=== PATIENT | male | born 1950 | race Caucasian/White ===

== ENCOUNTER → 2021-10-09 | Outpatient (CLI) | payer MEDICARE, OTHER ==
[~2021-10-09] MED LIST: ACET-1707 PO; AMLO-187 PO; APIX5TAB PO; ASPI-886 PO; ATOR40TA59 PO; BACL10TA PO; DULO30CA44 PO; FINA5TAB4 PO; FLUT16SP NS; GLIP5TAB10 PO; LOSA-73 PO; POTA10TA12 PO; QUET25TA5 PO; TAMS0.4C97 PO; TRIA15OI TP
[2021-10-09 11:37] LABS: BASO # 0.1 x10^3/uL (0.0-0.2); BASO % 1 % (0-3); EOS # 0.1 x10^3/uL (0.0-0.7); EOS % 2 % (0-3); HEMATOCRIT 36.3 % (39.0-53.0); LYMPH # 1.1 x10^3/uL (1.0-4.8); LYMPH % 13 % (24-48); MEAN CORPUSCULAR HEMOGLOBIN 30 pg (25-35); MEAN CORPUSCULAR HGB CONC 33 g/dL (31-37); MEAN CORPUSCULAR VOLUME 90 fL (79-100); MONO # 0.5 x10^3/uL (0.0-1.1); MONO % 5 % (0-9); NEUT # 6.7 x10^3/uL (1.8-7.7); NEUT % 79 % (31-73); PLATELET COUNT 285 x10^3/uL (140-400); RED BLOOD COUNT 4.04 x10^6/uL (4.30-5.70); RED CELL DISTRIBUTION WIDTH 15.6 % (11.5-14.5); WHITE BLOOD COUNT 8.4 x10^3/uL (4.0-11.0)
[2021-10-09 11:51] LABS: ALBUMIN 3.8 g/dL (3.4-5.0); CALCIUM 8.7 mg/dL (8.5-10.1); CREATININE 1.2 mg/dL (0.7-1.3); GFR 59.5; POTASSIUM 4.1 mmol/L (3.5-5.1)
--- NOTE | 2021-10-09 13:39 | EKG ---
[facility] [address] [place] [address] Test Date: 2021-10-09 Test Time: 13:39:13 Pat Name: LACHELLE PHILLIPS Department: Room: Gender: M Pl Sql Programmer: DEUCE : 1950 Requested By: GABRIEL PETERS Order Number: [id number] Reading MD: Ariel Law MD Measurements Intervals [place] Rate: 77 P: 38 AK: 200 QRS: 34 QRSD: 78 T: 68 QT: 366 QTc: 416 Interpretive Statements SINUS RHYTHM Electronically Signed On 10-09-2021 15:49:40 RELAY REPAIRER by Ariel Law MD
--- NOTE | 2021-10-09 15:47 | RAD ---
EXAM: CHEST 2 VIEWS. HISTORY: Preoperative risk factors. Hypertension. COMPARISON: None. FINDINGS: Frontal and lateral views of the chest are obtained. There are no confluent infiltrates. Hyperinflation suggests chronic obstructive pulmonary disease. Th ere is no pneumothorax or pleural effusion. The heart is not enlarged. IMPRESSION: 1. Correlate for chronic obstructive pulmonary disease. No confluent infiltrates. Electronically signed by: Mary Moralez MD (10/09/2021 3:44 PM) [id number]
[2021-10-10 02:32] LABS: HEMOGLOBIN A1C 5.5 % (4.8-5.6)
== END ==
LOC: SURGPAT 14:16
PROVIDERS: ATTEND Orthopaedic Surgery
DX: Z01.818 Encounter for other preprocedural examination (principal); M17.11 Unilateral primary osteoarthritis, right knee; Z79.01 Long term (current) use of anticoagulants; Z79.899 Other long term (current) drug therapy
CPT/HCPCS: 36415; 71046; 80048; 82040; 82306; 83036; 85025; 85610; 85651; 85730; 87641; 93005

== ENCOUNTER → 2021-10-30 | Day surgery (SDC) | payer MEDICARE, OTHER ==
[2021-10-11 14:35] VITALS: BP 147/80
[~2021-10-30] VITALS: Ht 180.3 cm; Wt 109.0 kg
[~2021-10-30] MED LIST changes: +ACETAMINOPHEN 500 MG TABLET PO PRN; +DEXAMETHASONE SOD PHOS 4 MG/ML VIAL ONE; +GABAPENTIN 300 MG CAPSULE. PO PRN; +HYDROmorphone 2 MG/ML INJ. IVP PRN; +INSULIN LISPRO 100 UNIT/ML 3ML VIAL for OP,RR ONLY. SQ PRN; +IV RINGERS,LACTATED 1000ML 1,000 ML IV SCH; +KETOROLAC 30 MG/ML VIAL. ONE; +LIDOCAINE 2% PF 5 ML VIAL. ONE; +MELOXICAM 7.5 MG TABLET PO PRN; +MORPHINE SULFATE 2 MG/ML INJ. IVP PRN; +MORPHINE SULFATE 5 MG, KETOROLAC 30MG VIAL 30 MG, ROPIVacaine 0.5% PF 60 ML, EPINEPHrin... INT ART ONE; +ONDANSETRON PF 4 MG/2 ML VIAL. ONE; +PROCHLORPERAZINE 10 MG/2 ML VIAL. IVP PRN; +PROPOFOL 10 MG/ML (20ML) VIAL. IV ONE; +ROCURONIUM 50 MG/5 ML VIAL. ONE; +SUCCINYLCHOLINE 200 MG/10 ML VIAL. ONE; +TRANEXAMIC ACID 1,000 MG in IV NS 50ML -- 1ST BAG INJ ONE; +TRANEXAMIC ACID 1,000 MG in IV NS 50ML -- 2ND BAG INJ ONE; +TV=100ml MORPHINE 5 MG, KETOROLAC 30 MG, ROPIVacaine 0.5% PF 60 ML, EPINEPH... INT ART ONE; +VANCOMYCIN 1GM IVPB FOR OMNI 250 ML IV PRN; +fentaNYL PF VIAL 100 MCG/2 ML VIAL IVP PRN; +fentaNYL PF VIAL 100 MCG/2 ML VIAL ONE
[2021-10-30 09:57] VITALS: BP 188/85
--- NOTE | 2021-10-30 10:55 | HP ---
DATE OF SERVICE: 10/30/2021 ADMIT DATE: 10/30/2021 HISTORY OF PRESENT ILLNESS: The patient has significant and ongoing right knee pain, which has been unresponsive to conservative therapies including injections, ice, elevation, modifying his activities, etc. He does have same pain in his left knee; however, the right is significant enough that it is causing him issues with activities of daily living and again has not responded to conservative measures. He wishes to undergo a knee replacement today. PAST MEDICAL HISTORY: Remarkable for cellulitis of the middle finger with subsequent amputation, bilateral lower extremity vascular insufficiency, which is mild according to his previous physicians. High cholesterol and hypertension. REVIEW OF SYSTEMS: Unremarkable other than his current systems. PAST SURGICAL HISTORY: Appendectomy, low back surgery, ankle surgery, status post ORIF, right middle finger amputation and cataract surgery. FAMILY HISTORY: Unremarkable. SOCIAL HISTORY: He is a former smoker; however, has not smoked over the last 10 years. He has one beer per week according to him presently. MEDICATIONS: Unknown at this point, he is taking an antihypertensive; however, does not know of the medication specifically. ALLERGIES: No known drug allergies. PHYSICAL EXAMINATION: He is 71 inches. He is 230 pounds. He lacks full extension by 10 degrees and is flexing only up to 90, possibly 95 degrees today with no instability in the varus, valgus or AP plane. There is no significant effusion. There is crepitance of the patellofemoral joint. No atrophy of musculature. Distal neurovascular status is fully intact. IMAGING DATA: X-ray shows severe degenerative joint disease of that right knee. IMPRESSION: Severe degenerative joint disease, right knee. PLAN: At this time, we will go ahead and undergo right total knee arthroplasty. He understands again talking with him about the risks, complications as well as benefits and expectations of surgery, postoperative protocol and followup and all questions were answered to his satisfaction. OLIVIER/MANJIT DR: Capo TID: [id number]
[2021-10-30 11:52] VITALS: BP 128/64
--- NOTE | 2021-10-30 12:26 | HP ---
DATE OF SERVICE: 10/30/2021 ADMIT DATE: 10/30/2021 HISTORY OF PRESENT ILLNESS: The patient has significant and ongoing right knee pain, which has been unresponsive to conservative therapies including injections, ice, elevation, modifying his activities, etc. He does have same pain in his left knee; however, the right is significant enough that it is causing him issues with activities of daily living and again has not responded to conservative measures. He wishes to undergo a knee replacement today. PAST MEDICAL HISTORY: Remarkable for cellulitis of the middle finger with subsequent amputation, bilateral lower extremity vascular insufficiency, which is mild according to his previous physicians. High cholesterol and hypertension. REVIEW OF SYSTEMS: Unremarkable other than his current systems. PAST SURGICAL HISTORY: Appendectomy, low back surgery, ankle surgery, status post ORIF, right middle finger amputation and cataract surgery. FAMILY HISTORY: Unremarkable. SOCIAL HISTORY: He is a former smoker; however, has not smoked over the last 10 years. He has one beer per week according to him presently. MEDICATIONS: Unknown at this point, he is taking an antihypertensive; however, does not know of the medication specifically. ALLERGIES: No known drug allergies. PHYSICAL EXAMINATION: He is 71 inches. He is 230 pounds. He lacks full extension by 10 degrees and is flexing only up to 90, possibly 95 degrees today with no instability in the varus, valgus or AP plane. There is no significant effusion. There is crepitance of the patellofemoral joint. No atrophy of musculature. Distal neurovascular status is fully intact. IMAGING DATA: X-ray shows severe degenerative joint disease of that right knee. IMPRESSION: Severe degenerative joint disease, right knee. PLAN: At this time, we will go ahead and undergo right total knee arthroplasty. He understands again talking with him about the risks, complications as well as benefits and expectations of surgery, postoperative protocol and followup and all questions were answered to his satisfaction. ADDENDUM Of note, upon entering the operative suite in order to place the tourniquet around the patient's thigh, exposure was undertaken of the groin region, which is noted to have a severe amount of cellulitis in addition to an inguinal type of yeast infection. This was significant enough that we are not comfortable proceeding with a total knee replacement. I will discuss this with him preoperatively. The examination for today included the knee as well as his cardiovascular status also done by anesthesia, but this was not noted until upon entrance into the operative suite. Therefore, we will cancel this procedure today. He will undergo appropriate treatment for that and then we will reschedule him for replacement. TRI DR: Capo TID: [id number]
--- NOTE | 2021-11-08 08:41 | OP ---
DATE OF SURGERY: 10/30/2021 PREOPERATIVE DIAGNOSIS: Severe degenerative joint disease, right knee. POSTOPERATIVE DIAGNOSIS: Severe degenerative joint disease, right knee. PROCEDURE: Right total knee arthroplasty. SURGEON: Gianfranco Hernandez Jr, D.O. METAL RIVETER: Miles Hernandez. ANESTHESIA: General. COMPLICATIONS: None. ESTIMATED BLOOD LOSS: 100 mL. DESCRIPTION OF PROCEDURE: The patient was taken to the operative suite, given a general anesthetic. Right lower extremity was then prepped and draped in a sterile fashion. After incision was made through skin and subcutaneous tissues, this was taken down to the extensor mechanism. The medial parapatellar incision was then made. The visualization of the patellofemoral joint and the medial and lateral compartments noted there to be severe degenerative changes throughout all compartments of the knee. Therefore, after skeletonization of the proximal tibia medially to release contracture, the patella was everted, measured and cut to the appropriate size. The guide was then placed for the drilling of the patellar component. Having the excess bone, it was then removed. The knee was taken into a flexed position. The drill was placed in the distal femur to open up the intramedullary canal and the IM guide with appropriate alignment was placed and affixed the anterior aspect of the femur. After this was held with pins in appropriate position and orientation and alignment, the distal cut was made. This was all removed and then the trialing guide was placed in appropriate position on the femur on the distal cut. This was measured to be the most appropriate size for the distal femur. The drill holes were then made through the guide and proper rotation noted for the femur. After this was performed, the 4-in-1 guide was placed and affixed the distal femoral cut, held with pins and the anterior, posterior and the chamfer cuts were then made. Bone was then removed after the cuts were made. A rongeur was used to remove osteophytes from the periphery of the femur as well as the intraarticular portion adjacent to the ACL and the ACL was transected. The PCL remained intact. After appropriate retraction of the tibia, medial and lateral meniscal remnants were removed. The external tibial guide was placed in appropriate position and orientation. After this was held with pins, the appropriate cut was made in the proximal tibia, sizing was completed and noted to be appropriate. Therefore, the trials were placed on the femoral and tibial sides of the joint as well as the patella. After this was taken through range of motion, full extension was noted, flexion up to 120, almost 125 degrees was noted. Rotation was marked for the tibial trial component. This was held with pins and then after the tower was placed, the drill and the keel were placed to the appropriate depth to pee rotation for the component. All trials were then removed, this was then copiously irrigated and suctioned dry. Cement was placed on the cut surfaces. The tibia was impacted first, followed by the femur. This was held in extension until hardening of cement with the trial poly. The patella was held with a patellar clamp after this was cemented as well. After hardening of cement, excess cement was then removed. The trial was then removed. The actual poly was placed and impacted and held it in the tibial tray. This was noted to be stable and again full extension, full flexion was noted with no instability to varus, valgus or AP plane. Therefore, the medial parapatellar incision was then closed in a running fashion. This was reinforced and then the tourniquet was deflated. No excessive bleeding was noted. Superficial tissue and skin was reapproximated. Sterile dressing was applied. The patient was then taken from the operative bed to the postoperative bed, taken to the PACU in stable condition. CESAR DR: Capo TID: [id number]
== END | disposition home or self-care (01) ==
LOC: SURG 09:20
PROVIDERS: ATTEND Orthopaedic Surgery
DX: M17.11 Unilateral primary osteoarthritis, right knee (principal); E78.00 Pure hypercholesterolemia, unspecified; I10 Essential (primary) hypertension; E11.9 Type 2 diabetes mellitus without complications; F41.9 Anxiety disorder, unspecified; F32.9 Major depressive disorder, single episode, unspecified; Z87.891 Personal history of nicotine dependence; Z79.82 Long term (current) use of aspirin; Z79.899 Other long term (current) drug therapy; Z98.890 Other specified postprocedural states; Z88.8 Allergy status to other drugs, medicaments and biological substances
CPT/HCPCS: 27447; 36415; 82962; 86850; 86900; 86901; A4213; A4930; A6253; A6258; A6450; A6550; J0171; J0330; J0690; J1100; J1885; J2270; J2405; J2704; J2795; J3010